=== PATIENT | female | born 1950 | race Caucasian/White ===

== ENCOUNTER 2018-01-11 20:47 | Emergency (ER) | payer MEDICARE, MEDICAID ==
--- NOTE | 2018-01-11 21:42 | EDM.PDOC ---
ED HPI GENERAL MEDICAL PROBLEM - General Chief Complaint: General Time Seen by Provider: 01/11/18 21:30 - History of Present Illness INITIAL COMMENTS - FREE TEXT/NARRATIVE: HISTORY AND PHYSICAL: History of present illness: The patient is a 67-year-old female with a long-standing history of arthritis and chronic pain who is from [place] and is here visiting her son and presents with requests for refills for oxycodone and methadone which she is going to run out of tomorrow. The patient usually gets a monthly prescription and is due for a refill tomorrow but is here in town and is not sure how to access resources. Patient denies any other systemic complaints and has no new or different pain. Review of systems: As per history of present illness and below otherwise all systems reviewed and negative. Past medical history: As per history of present illness and as reviewed below otherwise noncontributory. Surgical history: As per history of present illness and as reviewed below otherwise noncontributory. Social history: No reported history of drug or alcohol abuse. Family history: As per history of present illness and as reviewed below otherwise noncontributory. Physical exam: MR: Well-developed well-nourished petite female who is nontoxic and vital signs are noted by me HEENT: Atraumatic, normocephalic, negative for conjunctival pallor or scleral icterus, mucous membranes moist, throat clear, neck supple, nontender, trachea midline. Lungs: Clear to auscultation, breath sounds equal bilaterally, chest nontender. Heart: S1S2, regular rate and rhythm no overt murmurs Abdomen: Soft, nondistended, nontender. NABS Pelvis: Deferred. Genitourinary: Deferred. Rectal: Deferred. Extremities: Atraumatic, visible arthritic changes of the hands are seen consistent with her history of rheumatoid, negative for cords or calf pain. Neurovascular unremarkable. Neuro: Awake, alert, oriented. Cranial nerves II through XII unremarkable. Cerebellum unremarkable. Motor and sensory unremarkable throughout. Exam nonfocal. Diagnostics: [] Therapeutics: [] I discussed with the patient that I am not comfortable nor able to prescribe methadone or OxyContin in that significant dosage and that she will need to contact her provider in [place] to work with one of our local pharmacies to assist her in this process. I will give her Percocet from [facility] to help her and also information to get connected in our clinic. Impression: Request for medication refill Definitive disposition and diagnosis as appropriate pending reevaluation and review of above. neck Pain Score (Numeric/FACES): 9 right knee Pain Score (Numeric/FACES): 9 - Related Data Allergies Allergy/AdvReac Type Severity Reaction Status Date / Time No Known Allergies Allergy Verified 01/11/18 21:29 Home Meds: Home Meds Leflunomide [Arava] 20 mg PO DAILY 01/11/18 [History] Lisinopril 20 mg PO DAILY 01/11/18 [History] Methadone 10 mg PO DAILY 01/11/18 [History] oxyCODONE HCl [Oxycodone HCl] 30 mg PO Q8HR 01/11/18 [History] predniSONE [Prednisone] 5 mg PO DAILY 01/11/18 [History] ED ROS GENERAL - Review of Systems Review Of Systems: ROS reveals no pertinent complaints other than HPI. ED EXAM, GENERAL - Physical Exam Exam: See Below (see dictation) Course - Vital Signs Last Recorded V/S: Last Vital Signs Temp 36.5 C 01/11/18 21:21 Pulse 91 01/11/18 21:21 Resp 20 01/11/18 21:21 BP 150/70 H 01/11/18 21:21 Pulse Ox 98 01/11/18 21:21 Departure - Departure Time of Disposition: 21:40 Disposition: Home, Self-Care 01 Condition: Good Clinical Impression: Encounter for medication refill - Discharge Information Referrals: PCP,None [Primary Care Provider] - Additional Instructions: The following information is given to patients seen in the emergency department who are being discharged to home. This information is to outline your options for follow-up care. We provide all patients seen in our emergency department with a follow-up referral. The need for follow-up, as well as the timing and circumstances, are variable depending upon the specifics of your emergency department visit. If you don't have a primary care physician on staff, we will provide you with a referral. We always advise you to contact your personal physician following an emergency department visit to inform them of the circumstance of the visit and for follow-up with them and/or the need for any referrals to a consulting specialist. The emergency department will also refer you to a specialist when appropriate. This referral assures that you have the opportunity for followup care with a specialist. All of these measure are taken in an effort to provide you with optimal care, which includes your followup. Under all circumstances we always encourage you to contact your private physician who remains a resource for coordinating your care. When calling for followup care, please make the office aware that this follow-up is from your recent emergency room visit. If for any reason you are refused follow-up, please contact the [facility] emergency department at and ask to speak to the emergency department charge nurse. [facility] Primary care- Internal Medicine and Family [address] [address] Please use the Percocet as prescribed from [facility] to help tide you over and contact your provider at home in [place] to work with one of our local pharmacies to assist you as best they can. If you are unable to get your refill please contact one of our clinic providers and connect here with a provider encounter so that they can help you. Return to ER as needed and as discussed
== END 2018-01-11 21:52 | disposition home or self-care (01) ==
LOC: MW.ED 20:47
DX: Z76.0 Encounter for issue of repeat prescription (principal); Z79.899 Other long term (current) drug therapy
CPT/HCPCS: 99281